=== PATIENT | male | born 1980 | race African-American/Black ===

== ENCOUNTER 2023-10-01 14:09 | Day surgery (SDC) | payer OTHER, SELFPAY ==
--- NOTE | 2023-10-01 | PATH_ITS ---
[facility] Accession Number: [id number] No. of containers..01 Tissue . 01 Material submitted: . duodenum - DUODENUM . 01 Diagnosis: DUODENUM, BIOPSY: Duodenal mucosa with no diagnostic abnormality. Negative for active inflammation, features of sprue, dysplasia, or malignancy. MRV 10/03/2023 1411 Local . 01 Electronically signed: . Manish Bojorquez MD, PhD, Pathologist NPI- [id number] . 01 Gross description: . Received in formalin with two patient identifiers and duodenum, is a single huff soft tissue fragment, 0.4 cm in greatest dimension. Submitted in A1. ([id number]) /MRV 10/02/2023 1800 Local . 01 Pathologist provided ICD-10: R14.0 . 01 CPT . 824562 Specimen Comment: A courtesy copy of this report has been sent to [phone] Performed at: [address] [facility] [address], [place], [place] [id number] MD Juan Driscoll MD Phone: [phone]
[2023-10-01] MEDS: LACTATED RINGERS 1,000 ML 42 ML IV ×2 (14:47→15:35)
[2023-10-01 14:48] VITALS: BP 119/71; PULSE 56; RESP 24; TEMP 36.2; O2SAT 99; BMI 25.1
--- NOTE | 2023-10-01 15:13 | P.HP_ITS ---
History of Present Illness History of Present Illness Date Patient Seen: 10/01/23 Time Patient Seen: 15:13 Chief complaint: SDC Narrative: Anastasiia is a 43-year-old man who presents for an EGD and colonoscopy because of dysphagia and colon cancer screening. Please see the office note for details. [facility] Medical History (Updated 08/27/23 @ 15:21 by Ismael Walsh MD) Tailor's bunion of both feet Shoulder pain Prediabetes Social History household members: none Smoking Status: Never smoker Meds Home Medications and Allergies Allergies Allergy/AdvReac Type Severity Reaction Status Date / Time No Known Drug Allergies Allergy Verified 10/01/23 14:37 Exam Vital Signs (past 8 hours): - 10/01/23 14:48 Temperature 97.1 F L Pulse Rate 56 L Respiratory Rate 24 Blood Pressure 119/71 Pulse Oximetry 99 Oxygen Delivery Method Room Air Oxygen Delivery Method Room Air Const General: healthy appearing Resp Effort & Inspection: normal respiratory effort Assessment & Plan Assessment and plan (1) Colon cancer screening: Status: Acute (2) Dysphagia: Qualifiers: Dysphagia type: esophageal phase Qualified Code(s): R13.19 - Other dysphagia Status: Acute Plan Anastasiia is a 43-year-old man presenting for an EGD and colonoscopy for dysphagia and colon cancer screening. We reviewed the risks and benefits and he would like to proceed. Time-Based Coding :: [TOTAL MINUTES] spent with patient and on the chart (including review of chart, obtaining history, exam, reviewing outside data, placing orders, documenting exam and treatment plan, and counseling patient) on [DATE].
--- NOTE | 2023-10-01 15:39 | PM.OP.EC ---
Operative Date/Time/Diagnoses Date of procedure: 10/01/23 Time of procedure: 15:40 Pre-op diagnosis: Dysphagia and colon cancer screening Post-op diagnosis: same Procedure & Clinicians Study performed: EGD and colonoscopy Same procedure as scheduled: Yes Surgeon: Ismael Walsh Procedure Notes Procedure in detail: Surgeon: Ismael Walsh MD Anesthesia: Doyle Petersen MD Procedure in detail: A timeout was performed. A bite blocked was placed and monitors were attached to the patient. The patient was positioned in the left lateral decubitus position. Sedation was administered. Once the patient was sedated the endoscope was inserted through the bite block and passed through the esophagus and stomach and into the duodenum. No abnormalities were seen however random biopsies were taken with cold forceps to rule out celiac disease. We then withdrew the scope into the stomach. No abnormalities were seen. The endoscope was retroflexed and no hiatal hernia was. The endoscope was straightned and withdrawn into the esophagus. No abnormalities were seen in the esophagus. EGD findings: Normal EGD, random biopsies were taken from the duodenum Next we repositioned the patient for a colonoscopy. A digital rectal exam was performed and was normal. The colonoscope was inserted and advanced to the cecum. The appendiceal orifice was identified and photographed. The scope was slowly withdrawn over greater than 6 minutes. The terminal ileum was intubated and no abnormalities were seen. The rest of the colon was normal. The scope was retroflexed in the rectum and no abnormalities were seen. Colonoscopy findings: Normal colon, normal terminal ileum Total procedural EBL: 5 mL Scope withdrawal time: 6 minutes Sedation minutes: 16 minutes Post-procedure Recommendations: Colonscopy in 10 years Disposition: PACU
[2023-10-01 15:42] VITALS: BP 106/60; PULSE 60; RESP 14; TEMP 36.3; O2SAT 98
[2023-10-01 15:47] VITALS: BP 107/60; PULSE 56; RESP 13; O2SAT 99
[2023-10-01 15:53] VITALS: BP 116/72; PULSE 60; RESP 14; O2SAT 99
[2023-10-01 15:56] VITALS: BP 118/78; PULSE 68; RESP 13; TEMP 36.8; O2SAT 98
== END 2023-10-01 16:10 | disposition home or self-care (01) ==
PROVIDERS: PCP Family Medicine; Referring Provider Surgery; Visit Provider Surgery
PROC: 0DJ08ZZ Inspection of Upper Intestinal Tract, Via Natural or Artificial Opening Endoscopic (ICD-10-PCS; CPT 45378; principal; 2023-10-01 16:00)
PROC: 0DJD8ZZ Inspection of Lower Intestinal Tract, Via Natural or Artificial Opening Endoscopic (ICD-10-PCS; CPT 45378; 2023-10-01 16:00)
DX: Z12.11 Encounter for screening for malignant neoplasm of colon (principal); R13.10 Dysphagia, unspecified
CPT/HCPCS: 45378; 43239

== ENCOUNTER → 2024-12-25 14:53 | Outpatient (CLI) | payer OTHER, SELFPAY ==
--- NOTE | 2024-12-25 14:58 | DI.ECHO.S_ITS ---
[place] +---------+ Hospital : : [address] : : [place] : : [id number] : : Phone: [phone] Echocardiogram Report + + :Name: FALLON MARSHALL Study Date: 12/25/2024 Height: 71 in : :[facility] ReadingLocation: Weight: 165 lb : : Gender: Male BSA: 1.9 m2 : :: 1980 Age: 44 yrs BP: 113/73 mmHg: :Reason For Study: Hypertrophy : :Ordering Physician: HANNAH, : :JAVAN Performed By: Hussein Castillo : :Referring: JAVAN YOUNG : + + Interpretation Summary The left ventricle is normal in size and wall thickness. The ejection fraction is estimated to be 50-55%. There is basal inferior wall hypokinesis. The right ventricle is normal in size and function. There is mild tricuspid regurgitation. The IVC is of normal diameter and collapses greater than 50% with a sniff. This suggests a low right atrial pressure of 3 mm Hg. There is mild luminal irregularity and echogenicity in the abdominal aorta, suggestive of aortic atherosclerotic disease. Procedure: A two-dimensional transthoracic echocardiogram with color flow and Doppler was performed. The study quality was technically adequate. There is no prior echocardiogram noted for this patient. The patient was in normal sinus rhythm during the exam. Left Ventricle: The left ventricle is normal in size and wall thickness. There is no thrombus. The ejection fraction is estimated to be 50-55%. There is basal inferior wall hypokinesis. Normal diastolic function. Right Ventricle: The right ventricle is normal in size and function. Atria: The left atrial size is normal. Right atrial size is normal. There is no Doppler evidence for an interatrial shunt. Mitral Valve: The mitral valve leaflets appear to open well. There is no mitral valve stenosis. There is trace mitral regurgitation. Aortic Valve: The aortic valve is trileaflet. The aortic valve opens well. There is no aortic valve stenosis. No aortic regurgitation is present. Tricuspid Valve: The tricuspid valve is normal. There is mild tricuspid regurgitation. Pulmonary artery pressures cannot be estimated because of the lack of a measurable TR jet velocity. Pulmonic Valve: The pulmonic valve is not well seen, but is grossly normal. There is a trace or physiologic amount of pulmonic regurgitation. Great Vessels: The aortic root is normal size. The ascending aorta is normal in size. The aortic arch could not be visualized. There is mild luminal irregularity and echogenicity in the abdominal aorta, suggestive of aortic atherosclerotic disease. The pulmonary artery is normal size. The IVC is of normal diameter and collapses greater than 50% with a sniff. This suggests a low right atrial pressure of 3 mm Hg. Pericardium/ Pleura There is no pericardial effusion. MMode/2D Measurements & Calculations LVIDd: 4.8 cm LVOT diam: 2.1 cm LVIDs: 3.4 cm Ao root diam: 3.3 cm FS: 30.4 % asc Aorta Diam: 2.8 cm IVSd: 0.88 cm LVPWd: 0.90 cm LV wilson. diameter/BSA (cm/m^2): 2.5 LV sys. diameter/BSA (cm/m^2): 1.7 LA A2 area: 16.4 cm2 RA long axis: 4.7 cm LA A4 area: 14.3 cm2 RA area: 12.5 cm2 LA length (vol): 5.3 cm RA vol: 28.4 ml LA vol: 37.1 ml RA : 14.6 ml/m2 LA vol index: 19.1 ml/m2 IVC diam: 1.6 cm RVD1 (basal): 3.0 cm RVD2 (mid): 2.7 cm TAPSE: 1.8 cm Doppler Measurements & Calculations Ao V2 max: 113.8 cm/sec LVOT Max Himanshu: 109.9 cm/sec Ao V2 mean: 79.8 cm/sec LV V1 max P.8 mmHg Ao max P.2 mmHg LV V1 VTI: 19.1 cm Ao mean P.8 mmHg LEONARDA(I,D): 3.1 cm2 Ao V2 VTI: 20.5 cm LEONARDA(V,D): 3.2 cm2 sev ratio: 0.93 LEONARDA indexed to BSA (cm^2/m^2): 1.6 MV E max himanshu: 67.1 cm/sec PA V2 max: 97.7 cm/sec MV A max himanshu: 54.9 cm/sec PA V2 mean: 76.1 cm/sec MV E/A: 1.2 PA mean P.5 mmHg Med Peak E' Himanshu: 10.4 cm/sec PA pr(Accel): 30.2 mmHg E/E' med: 6.4 Lat Peak E' Himanshu: 11.5 cm/sec E/E' lat: 5.8 E/e' average: 6.1 MV dec time: 0.19 sec SV(LVOT): 64.1 ml Qp/Qs (V,Ao): 1.0/3.0 Qp/Qs (V,LVOT): 1.0/1.2 Reading Physician:05:56 PM
== END ==
LOC: ECHO 14:57
PROVIDERS: PCP Family Medicine; Referring Provider Family Medicine; Visit Provider Orthopaedic Surgery
DX: I07.1 Rheumatic tricuspid insufficiency (principal); I51.7 Cardiomegaly
CPT/HCPCS: 93306